=== PATIENT | male | born 1985 | race Caucasian/White ===

== ENCOUNTER 2016-07-29 03:06 | Emergency (ER) | payer SELFPAY ==
[~2016-07-29] VITALS: Ht 175.3 cm; Wt 47.6 kg
[2016-07-29] MEDS ORDERED: ONDANSETRON HCL 4 MG/2 ML VIAL IV ONE (03:15)
[2016-07-29] MEDS ORDERED: MORPHINE SULFATE 4 MG/ML SYRG IV ONE ×3 (03:15→07:00)
[2016-07-29] MEDS ORDERED: TETANUS-DIPTH-ACEL PERTUSSIS 0.5ML SYRG IM ONE (03:15)
[2016-07-29] MEDS ORDERED: LORazepam 2MG/ML-1ML VIAL IV ONE (05:30)
[2016-07-29 07:17] VITALS: BP 148/90
== END 2016-07-29 07:48 | disposition short-term general hospital (02) ==
LOC: ER 03:06
DX: S92.254A Nondisplaced fracture of navicular [scaphoid] of right foot, initial encounter for closed fracture (principal); S92.101A Unspecified fracture of right talus, initial encounter for closed fracture; Z59.0 Homelessness; W34.00XA Accidental discharge from unspecified firearms or gun, initial encounter; Y93.89 Activity, other specified; Y99.9 Unspecified external cause status; Y92.89 Other specified places as the place of occurrence of the external cause; Z23 Encounter for immunization
CPT/HCPCS: 29515; 73630; 90471; 90715; 94761; 96374; 96375; 96376; 99285; J2060; J2270; J2405